=== PATIENT | male | born 1975 | race Caucasian/White ===

== ENCOUNTER 2021-10-07 12:47 | Emergency (ER) | payer SELFPAY ==
[~2021-10-07] VITALS: Ht 172.7 cm; Wt 107.0 kg
--- NOTE | 2021-10-07 13:02 | NUR ---
LE FRANCO "Parent called he apparently was not feeling well/HOOD/Dizzy took dayquil/nyquil-appeared sleepy [id number]". The patient is awake and responsive to verbal stimuli. Attached the patient to the monitor. Will continue to monitor the patient.
--- NOTE | 2021-10-07 13:11 | NUR ---
IV ESTABLIHSED R AC18G. LABS DRAWN AND COLLECTED AT BEDSIDE. PT UNLABLE TOPROVIDE URINE AT THIS TIME, URINAL WITHIN REACH.
--- NOTE | 2021-10-07 13:12 | NUR ---
THE PATIENT IS TAKEN TO CT VIA [facility]
[2021-10-07 13:15] LABS: BASOPHILS % (AUTO) 0.1 % (0.0-2.0); HEMATOCRIT 47 % (39-51); LYMPHOCYTES % (AUTO) 5.4 % (20.0-44.0); MEAN CORPUSCULAR HGB CONC 34 g/dl (31.0-36.0); MEAN CORPUSCULAR VOLUME 89 fL (80-96); MONOCYTES # (AUTO) 0.5 K/uL (0.1-1.30); MONOCYTES % (AUTO) 3.1 % (2.0-12.0); NEUTROPHILS # (AUTO) 16.2 K/uL (1.8-8.9); NEUTROPHILS % (AUTO) 91.4 % (43.0-81.0); PLATELET COUNT (AUTO) 303 K/uL (150-450); RED BLOOD CELL COUNT(AUTO) 5.29 MIL/uL (4.5-6.0); WHITE BLOOD COUNT (AUTO) 17.7 K/uL (4.3-11.0)
[2021-10-07 13:25] LABS: ALANINE AMINOTRANSFERASE 53 U/L (12-78); ALCOHOL, BLOOD < 3 mg/dL (0-0); ALKALINE PHOSPHATASE 131 U/L (46-116); ASPARTATE AMINOTRANSFERASE 24 U/L (15-37); BILIRUBIN,DIRECT 0.1 mg/dL (0.0-0.2); BILIRUBIN,TOTAL 1.2 mg/dL (0.2-1.0); CALCIUM, SERUM 8.4 mg/dL (8.5-10.1); CARBON DIOXIDE 24 mmol/L (21-32); CHLORIDE 98 mmol/L (98-107); CREATININE 0.7 mg/dL (0.6-1.3); GLUCOSE 339 mg/dL (74-106); POTASSIUM 4.4 mmol/L (3.5-5.1); SODIUM SERUM 137 mmol/L (136-145); UREA NITROGEN, BLOOD 13 mg/dL (7-18)
--- NOTE | 2021-10-07 13:25 | NUR ---
FAXED [facility] PT FACESHEET AT [phone]
--- NOTE | 2021-10-07 13:25 | NUR ---
CALLED DR. GUZMAN REGARDING PT STATUS. DR. GUZMAN DID NOTIFIED DR. BERMEO THAT HE WILL SET UP EMERGENT TRANSPORTATION FOR THE PT. ALSO SENT IMAGES TO DR. GUZMAN.
[2021-10-07] MEDS ORDERED: hydrALAZINE HCL IV 20 MG VIAL ONE ×2 (13:26→14:26)
[2021-10-07] MEDS ORDERED: hydrALAZINE HCL IV 20 MG VIAL IV ONE ×2 (13:30→15:00)
[2021-10-07] MEDS ORDERED: NICARDIPINE HCL 40 MG in IV NS 0.9% 184 ML IV PRN (13:30)
--- NOTE | 2021-10-07 13:31 | NUR ---
COVID TEST COLLECTED AND SENT
[2021-10-07 13:35] LABS: ACETAMINOPHEN 0 ug/ml (10-30)
--- NOTE | 2021-10-07 13:46 | NUR ---
[facility] AND WAS NOTIFIED THAT THE PT WILL BE PICKED UP AT [phone]
--- NOTE | 2021-10-07 13:57 | NUR ---
PATIENT WILL BE TRANSFERED TO [facility] ROOM #[id number] NUMBER FOR REPORT [phone]
--- NOTE | 2021-10-07 14:04 | NUR ---
REPORT GIVEN TO TAVO FROM [facility] FOR [facility]SI
--- NOTE | 2021-10-07 14:06 | NUR ---
PT BLOOD PRESUURE 143/68, HEART RATE 63, DR BERMEO MADE AWARE, PER MD MAINTAIN SYSTOLIC OF 140S
[2021-10-07 14:25] LABS: SERUM AMMONIA 53 umol/L (11-32)
[2021-10-07 14:36] VITALS: BP 139/112
--- NOTE | 2021-10-07 14:37 | NUR ---
PT TRANSPORTED TO [facility] BLOOD PRESSURE 139/112 HEART RATE 60. NICARDIPINE DRIP DISCONTINUED PRIOR TO TRANPORTATION.
== END 2021-10-07 14:42 | disposition short-term general hospital (02) ==
LOC: ER 12:50
DX: I60.9 Nontraumatic subarachnoid hemorrhage, unspecified (principal); R41.82 Altered mental status, unspecified; I10 Essential (primary) hypertension; E11.65 Type 2 diabetes mellitus with hyperglycemia; D72.829 Elevated white blood cell count, unspecified; R94.31 Abnormal electrocardiogram [ECG] [EKG]; Z20.822 Contact with and (suspected) exposure to COVID-19
CPT/HCPCS: 36415; 70450; 71045; 80048; 80076; 80143; 80320; 82140; 82962; 83605; 84443; 84484; 85025; 85730; 87426; 93005; 96365; 96375; 96376; 99291; C9803; J0360 ×2; J7050; G0480